=== PATIENT | female | born 1975 | race African-American/Black ===

== ENCOUNTER 2017-04-05 15:16 | Emergency (ER) | payer MEDICAID ==
[2017-04-05] MEDS ORDERED: IPRATROPIUM/ALBUTEROL (0.5MG/3MG) NEB INH ONE (15:26)
[2017-04-05] MEDS ORDERED: AZITHROMYCIN 500 MG TABLET PO ONE (15:27)
[2017-04-05] MEDS ORDERED: PREDNISONE 20 MG TAB PO ONE (15:27)
--- NOTE | 2017-04-05 15:31 | Emergency Department Record ---
History of Present Illness - General Chief Complaint: Cough Stated Complaint: WHEEZING,CHEST CONGESTION,COUGH Time Seen by Provider: 04/05/17 15:22 Source: Patient Mode of Arrival: Ambulatory Limitations: No limitations - History of Present Illness Initial Comments: 41 yo female presents with cough with sputum for about 4 days. She is a smoker. No diagnosis of asthmas or COPD. She feels wheezy as well. No nausea , vomiting or diarrhea. No rash. No edema. She works in a smoky environment as well. Her chest is sore but only with cough. No sore throat at this time. 25 years ago she had a pneumothorax MD Complaint: Cough -: Days(s) (4) Severity: Moderate Quality: Aching Consistency: Constant Improves With: Nothing Worsens With: Other (cough) Context: Sick contacts Associated Symptoms: Cough Treatments Prior to Arrival: None - Related Data Home Medications Medication Instructions Recorded Confirmed Last Taken Ibuprofen 800 mg PO ASDIR 04/05/17 04/05/17 Unknown Previous Rx's Medication Instructions Recorded Azithromycin [Zithromax] 250 mg PO DAILY #4 tab 04/05/17 Prednisone [Prednisone 20Mg] 20 mg PO BID #10 tab 04/05/17 Allergies Allergy/AdvReac Type Severity Reaction Status Date / Time No Known Drug Allergies Allergy Verified 04/05/17 15:25 Review of Systems Constitutional: Denies: Chills, Fever, Malaise, Weakness Eyes: Denies: Eye discharge ENT: Reports: Congestion. Denies: Throat pain Respiratory: Reports: Cough, Dyspnea, Wheezes. Denies: Stridor Cardiovascular: Reports: Chest pain (with cough). Denies: Palpitations, Syncope Endocrine: Denies: Fatigue, Polydipsia, Polyuria Gastrointestinal: Denies: Abdominal pain, Diarrhea, Nausea, Vomiting Genitourinary: Denies: Dysuria, Urgency Musculoskeletal: Denies: Arthralgia, Back pain, Myalgia, Neck pain Skin: Denies: Bruising, Change in color, Rash Neurological: Denies: Headache, Numbness, Vertigo, Weakness Psychiatric: Denies: Anxiety Hematological/Lymphatic: Denies: Blood Clots, Easy bleeding, Easy bruising, Swollen glands Physical Exam - General General Appearance: Alert, Oriented x3, Cooperative, No acute distress, Other ( Well appearing, conversational) Limitations: No limitations - Head Head exam: Normal inspection - Eye Eye exam: Normal appearance, Conjunctival injection. negative: Periorbital swelling - ENT ENT exam: Normal exam, Mucous membranes moist Ear exam: Normal external inspection Nasal Exam: Normal inspection Mouth exam: Normal external inspection Teeth exam: Normal inspection Throat exam: Normal inspection. negative: Tonsillar erythema, Tonsillomegaly, Tonsillar exudate, R peritonsillar mass, L peritonsillar mass - Neck Neck exam: Normal inspection, Full ROM. negative: Tenderness - Respiratory Respiratory exam: Normal lung sounds bilaterally, Prolonged expiratory, Rhonchi , Wheezes. negative: Accessory muscle use, Chest wall tenderness, Decreased breath sounds, Respiratory distress - Cardiovascular Cardiovascular Exam: Regular rate, Normal rhythm, Normal heart sounds - GI/Abdominal GI/Abdominal exam: Soft - Rectal Rectal exam: Deferred - exam: Deferred - Extremities Extremities exam: Normal inspection. negative: Pedal edema, Tenderness - Back Back exam: Reports: Normal inspection, Full ROM. Denies: Muscle spasm, Rash noted, Tenderness - Neurological Neurological exam: Alert, Normal gait, Oriented X3 - Psychiatric Psychiatric exam: Normal affect, Normal mood Course - Reevaluation(s) Reevaluation #1: No acute changes on the chest XR. No PTX or PNA. 04/05/17 16:04 We discussed smoking cessation given early signs of COPD on CXR Disposition Disposition: Discharge Clinical Impression: Bronchitis Disposition: Home, Self-Care Condition: (1) Good Instructions: COPD (Chronic Obstructive Pulmonary Disease) (ED) Additional Instructions: Stop smoking Return if worse, fever, sputum or new concerns Take the steroid and antibiotic until gone Call your doctor for close follow up Prescriptions: Azithromycin [Zithromax] 250 mg PO DAILY #4 tab Prednisone [Prednisone 20Mg] 20 mg PO BID #10 tab Forms: Patient Portal Access Time of Disposition: 16:07 Quality - Quality Measures Quality Measures: N/A - Blood Pressure Screening Does Patient Have Any of the Following: No Blood Pressure Classification: Normal BP Reading Systolic Measurement: 118 Diastolic Measurement: 48 Screening for High Blood Pressure: < Normal BP, F/U Not Required > [G8783]
--- NOTE | 2017-04-06 09:53 | RADIOLOGY REPORT ---
EXAM: CHEST, TWO VIEWS HISTORY: COUGH AND CHEST PAIN FOR FIVE DAYS, HISTORY OF LEFT COLLAPSED LUNG. TECHNIQUE: PA and lateral views of the chest were obtained. Comparison: None. FINDINGS: The heart is not enlarged. Postop changes left apical region and mild apical pleural thickening bilaterally. No acute infiltrate is seen. No pleural effusion or pneumothorax evident. Minor thoracic curve to the right. A relatively deep inspiration has been taken which may just reflect a vigorous inspiratory effort although could also represent some air trapping. IMPRESSION: 1. POSTOP CHANGES LEFT APEX. 2. DEEP INSPIRATION. 3. NO ACUTE INFILTRATE OR PNEUMOTHORAX EVIDENT. 4. MINOR THORACIC CURVE TO THE RIGHT. JOB NUMBER: [id number] MTDD
== END 2017-04-05 16:14 | disposition home or self-care (01) ==
LOC: ER 15:16
DX: J20.9 Acute bronchitis, unspecified (principal); F17.210 Nicotine dependence, cigarettes, uncomplicated; R06.2 Wheezing
CPT/HCPCS: 99283; 99284; 71020; 94640; J7512